=== PATIENT | female | born 1940 | race Caucasian/White ===

== ENCOUNTER 2017-07-22 17:34 | Observation (INO) | payer BC, OTHER ==
[~2017-07-22] VITALS: Ht 161.3 cm; Wt 52.3 kg
[2017-07-22 17:39] VITALS: BP 153/84; PULSE 89; RESP 18; TEMP 97.5; O2SAT 95
[2017-07-22 18:16] LABS: AUTOMATED NEUTROPHIL # 5.6 TH/MM3 (1.8-7.7); BASOPHIL # 0.1 TH/MM3 (0-0.2); BASOPHIL % 0.8 % (0.0-2.0); EOSINOPHIL % 0.3 % (0.0-4.0); HEMATOCRIT 46.3 % (35.0-46.0); HEMOGLOBIN 15.4 GM/DL (11.6-15.3); LYMPH % 19.6 % (9.0-44.0); LYMPHOCYTE # 1.6 TH/MM3 (1.0-4.8); MEAN CELL VOLUME 84.8 FL (80.0-100.0); MEAN CORPUSCULAR HEMOGLOBIN 28.1 PG (27.0-34.0); MEAN CORPUSCULAR HGB CONC 33.2 % (32.0-36.0); MEAN PLATELET VOLUME 8.2 FL (7.0-11.0); MONO % 8.6 % (0.0-8.0); MONOCYTE # 0.7 TH/MM3 (0-0.9); NEUT % 70.7 % (16.0-70.0); PLATELET COUNT 199 TH/MM3 (150-450); RED BLOOD COUNT 5.46 MIL/MM3 (4.00-5.30)
[2017-07-22 18:21] LABS: INTERNATIONAL NORMALIZED RATIO 1.1 RATIO; PROTHROMBIN TIME - PATIENT 11.3 SEC (9.8-11.6)
--- NOTE | 2017-07-22 18:27 | RADRPT ---
EXAM DATE/TIME: 07/22/2017 18:05 [facility] COMPARISON: No previous studies available for comparison. INDICATIONS : Palpitations and leg swelling. MEDICAL HISTORY : A-fib. SURGICAL HISTORY : None. ENCOUNTER: Initial ACUITY: 1 day PAIN SCORE: 0/10 LOCATION: Bilateral chest FINDINGS: PA and lateral views of the chest demonstrate no focal consolidation or significant effusion. Heart s ize is mildly enlarged. Tortuous aorta. Remote left clavicle fracture. Remote left rib fractures. CONCLUSION: 1. No acute findings. Paulo Plata MD on July 22, 2017 at 18:22 Board Certified Radiologist. This report was verified electronically.
[2017-07-22 18:34] LABS: BICARBONATE 28.9 MEQ/L (21.0-32.0); BLOOD UREA NITROGEN 10 MG/DL (7-18); CHLORIDE 99 MEQ/L (98-107); CREATININE 0.73 MG/DL (0.50-1.00); GLOMERULAR FILTRATION RATE 77 ML/MIN (>89); GLUCOSE,RANDOM 103 MG/DL (74-106); MAGNESIUM 1.6 MG/DL (1.5-2.5); SODIUM (NA) 134 MEQ/L (136-145)
[2017-07-22 18:38] LABS: TROPONIN I LESS THAN 0.02 NG/ML (0.02-0.05)
--- NOTE | 2017-07-22 20:44 | PD ---
HPI Chief Complaint: Cardiac Complaint Time Seen by Provider: 20:29 Travel History International Travel<30 days: No Contact w/Intl Traveler<30days: No Traveled to known affect area: No History of Present Illness HPI This is a 77-year-old female with history of infrequent tobacco and alcohol use who was sent by her primary care physician for evaluation of new onset atrial fibrillation. She reports that over the past 1-2 weeks she has had mild edema to the lower extremities. She saw her primary care physician, Dr. Sanchez, about this issue today and she was found to have atrial fibrillation. Her heart rate was as high as 145. She was given digoxin, aspirin, diltiazem in office and she was referred here for further evaluation. In retrospect she does report that she has had intermittent palpitations over the past 1-2 weeks. She denies chest pain, shortness of breath, lightheadedness, dizziness, nausea , vomiting, cough, congestion, abdominal pain, fevers or chills. Denies recent travel. No other complaints at this time. [facility] Social History Alcohol Use: Yes Tobacco Use: Yes Allergies-Medications (Allergen,Severity, Reaction): Coded Allergies: No Known Allergies (Unverified , 07/22/17) Review of Systems Except as stated in HPI: all other systems reviewed are Neg Physical Exam Narrative GENERAL: Pleasant well-developed well-nourished female no acute distress. SKIN: Warm and dry. HEAD: Atraumatic. Normocephalic. EYES: Pupils equal and round. No scleral icterus. No injection or drainage. ENT: No nasal bleeding or discharge. Mucous membranes pink and moist. NECK: Trachea midline. No JVD. CARDIOVASCULAR: Irregular rate and rhythm. No murmur appreciated. RESPIRATORY: No accessory muscle use. Clear to auscultation. Breath sounds equal bilaterally. GASTROINTESTINAL: Abdomen soft, non-tender, nondistended. Hepatic and splenic margins not palpable. MUSCULOSKELETAL: No obvious deformities. Trace tibial edema bilaterally. There is mild tenderness to palpation of both calves. Negative Homans. No tenderness to palpation of the thighs. 2+ dorsalis pedis pulses bilaterally. NEUROLOGICAL: Awake and alert. No obvious cranial nerve deficits. Motor grossly within normal limits. Normal speech. Data Data Last Documented VS Vital Signs Date Time Temp Pulse Resp B/P (MAP) Pulse Ox O2 Delivery O2 Flow Rate FiO2 07/22/17 17:39 97.5 89 18 153/84 (107) 95 Orders Orders Electrocardiogram (07/22/17 17:43) Basic Metabolic Panel (Bmp) (07/22/17 17:43) Ckmb (Isoenzyme) Profile (07/22/17 17:43) Complete Blood Count With Diff (07/22/17 17:43) Magnesium (Mg) (07/22/17 17:43) Prothrombin Time / Inr (Pt) (07/22/17 17:43) Act Partial Throm Time (Ptt) (07/22/17 17:43) Troponin I (07/22/17 17:43) Chest, Pa & Lat (07/22/17 17:43) Us Leg Venous Doppler Bilat (07/22/17 20:40) B-Type Natriuretic Peptide (07/22/17 20:40) Admit Order (Ed Use Only) (07/22/17 22:44) Labs Laboratory Tests Test 07/22/17 17:53 07/22/17 20:52 White Blood Count 8.0 TH/MM3 Red Blood Count 5.46 MIL/MM3 Hemoglobin 15.4 GM/DL Hematocrit 46.3 % Mean Corpuscular Volume 84.8 FL Mean Corpuscular Hemoglobin 28.1 PG Mean Corpuscular Hemoglobin Concent 33.2 % Red Cell Distribution Width 14.0 % Platelet Count 199 TH/MM3 Mean Platelet Volume 8.2 FL Neutrophils (%) (Auto) 70.7 % Lymphocytes (%) (Auto) 19.6 % Monocytes (%) (Auto) 8.6 % Eosinophils (%) (Auto) 0.3 % Basophils (%) (Auto) 0.8 % Neutrophils # (Auto) 5.6 TH/MM3 Lymphocytes # (Auto) 1.6 TH/MM3 Monocytes # (Auto) 0.7 TH/MM3 Eosinophils # (Auto) 0.0 TH/MM3 Basophils # (Auto) 0.1 TH/MM3 CBC Comment DIFF FINAL Differential Comment Prothrombin Time 11.3 SEC Prothromb Time International Ratio 1.1 RATIO Activated Partial Thromboplast Time 25.4 SEC Blood Urea Nitrogen 10 MG/DL Creatinine 0.73 MG/DL Random Glucose 103 MG/DL Calcium Level 9.0 MG/DL Magnesium Level 1.6 MG/DL Sodium Level 134 MEQ/L Potassium Level 3.7 MEQ/L Chloride Level 99 MEQ/L Carbon Dioxide Level 28.9 MEQ/L Anion Gap 6 MEQ/L Estimat Glomerular Filtration Rate 77 ML/MIN Total Creatine Kinase 71 U/L Troponin I LESS THAN 0.02 NG/ML B-Type Natriuretic Peptide 392 PG/ML MDM Medical Decision Making Medical Screen Exam Complete: Yes Emergency Medical Condition: Yes Medical Record Reviewed: Yes Differential Diagnosis New-onset atrial fibrillation, CHF, DVT, electrolyte abnormality, sinus tachycardia Narrative Course This is a 77-year-old female who has been experiencing new bilateral lower extremity edema for the past few weeks as well as palpitations, found to have new onset atrial fibrillation and her primary care physician's office today. EKG obtained here reveals atrial fibrillation with a rate of 85. T-wave inversions are noted in the anterior lateral leads. No comparison EKG. CBC reveals hemoglobin of 15.4 otherwise unremarkable. BMP reveals a sodium of 134 otherwise unremarkable. Cardiac enzymes are negative. Chest x-ray reveals no acute findings. Doppler ultrasound of the lower extremities reveals no acute abnormalities. BNP is 392. At this point in time the plan is to admit the patient for new onset atrial fibrillation. Diagnosis Primary Impression: Atrial fibrillation Admitting Information Admitting Physician Requests: Admit Devonte Cardenas Jul 22, 2017 20:44
--- NOTE | 2017-07-22 21:54 | EKG ---
Date Performed: 07/22/2017 Time Performed: 17:55:22 PTAGE: 77 years EKG: ATRIAL FIBRILLATION Nonspecific ST and T wave abnormalities ABNORMAL ECG NO PREVIOUS TRACING DOCTOR: Dennis Packer Interpretating Date/Time 07/22/2017 21:53:10
--- NOTE | 2017-07-22 22:31 | RADRPT ---
EXAM DATE/TIME: 07/22/2017 21:53 [facility] COMPARISON: No previous studies available for comparison. INDICATIONS : Bilateral leg swelling. MEDICAL HISTORY : Hypercholesterolemia. SURGICAL HISTORY : Tubal ligation. Bladder surgery. ENCOUNTER: Initial ACUITY: 1 week PAIN SCORE: 2/10 LOCATION: Bilateral legs. TECHNIQUE: Venous ultrasound of the left and right leg was performed from the inguinal ligament to the proximal calf. Real-time, color Doppler and spectral tracing, compression and augmentation techniques were us ed. FINDINGS: RIGHT LEG: There is normal compressibility of the deep venous system from the inguinal region to the proximal ca lf. No echogenic clot is seen in the lumen of the common femoral, femoral, popliteal, and posterior tibial veins. There is a normal response of the venous system to proximal and distal augmentation an d respiration. LEFT LEG: There is normal compressibility of the deep venous system from the inguinal region to the proximal ca lf. No echogenic clot is seen in the lumen of the common femoral, femoral, popliteal, and posterior tibial veins. There is a normal response of the venous system to proximal and distal augmentation an d respiration. CONCLUSION: Normal examination. Paulo Plata MD on July 22, 2017 at 22:27 Board Certified Radiologist. This report was verified electronically.
--- NOTE | 2017-07-22 23:03 | PD ---
Data Data Last Documented VS Vital Signs Date Time Temp Pulse Resp B/P (MAP) Pulse Ox O2 Delivery O2 Flow Rate FiO2 07/22/17 17:39 97.5 89 18 153/84 (107) 95 Orders Orders Electrocardiogram (07/22/17 17:43) Basic Metabolic Panel (Bmp) (07/22/17 17:43) Ckmb (Isoenzyme) Profile (07/22/17 17:43) Complete Blood Count With Diff (07/22/17 17:43) Magnesium (Mg) (07/22/17 17:43) Prothrombin Time / Inr (Pt) (07/22/17 17:43) Act Partial Throm Time (Ptt) (07/22/17 17:43) Troponin I (07/22/17 17:43) Chest, Pa & Lat (07/22/17 17:43) Us Leg Venous Doppler Bilat (07/22/17 20:40) B-Type Natriuretic Peptide (07/22/17 20:40) Admit Order (Ed Use Only) (07/22/17 22:44) Labs Laboratory Tests Test 07/22/17 17:53 07/22/17 20:52 White Blood Count 8.0 TH/MM3 Red Blood Count 5.46 MIL/MM3 Hemoglobin 15.4 GM/DL Hematocrit 46.3 % Mean Corpuscular Volume 84.8 FL Mean Corpuscular Hemoglobin 28.1 PG Mean Corpuscular Hemoglobin Concent 33.2 % Red Cell Distribution Width 14.0 % Platelet Count 199 TH/MM3 Mean Platelet Volume 8.2 FL Neutrophils (%) (Auto) 70.7 % Lymphocytes (%) (Auto) 19.6 % Monocytes (%) (Auto) 8.6 % Eosinophils (%) (Auto) 0.3 % Basophils (%) (Auto) 0.8 % Neutrophils # (Auto) 5.6 TH/MM3 Lymphocytes # (Auto) 1.6 TH/MM3 Monocytes # (Auto) 0.7 TH/MM3 Eosinophils # (Auto) 0.0 TH/MM3 Basophils # (Auto) 0.1 TH/MM3 CBC Comment DIFF FINAL Differential Comment Prothrombin Time 11.3 SEC Prothromb Time International Ratio 1.1 RATIO Activated Partial Thromboplast Time 25.4 SEC Blood Urea Nitrogen 10 MG/DL Creatinine 0.73 MG/DL Random Glucose 103 MG/DL Calcium Level 9.0 MG/DL Magnesium Level 1.6 MG/DL Sodium Level 134 MEQ/L Potassium Level 3.7 MEQ/L Chloride Level 99 MEQ/L Carbon Dioxide Level 28.9 MEQ/L Anion Gap 6 MEQ/L Estimat Glomerular Filtration Rate 77 ML/MIN Total Creatine Kinase 71 U/L Troponin I LESS THAN 0.02 NG/ML B-Type Natriuretic Peptide 392 PG/ML [facility] Medical Record Reviewed: Yes Supervised Visit with SOILA: Yes Interpretation(s) Last Impressions Lower Extremity Ultrasound 07/22/172039 Signed Impressions: Service Date/Time: Saturday, July 22, 2017 21:53 - CONCLUSION: Normal examination. Paulo Plata MD Chest X-Ray 07/22/171742 Signed Impressions: Service Date/Time: Saturday, July 22, 2017 18:05 - CONCLUSION: 1. No acute findings. Paulo Plata MD Narrative Course I, Dr. Arriaga, have reviewed the advance practice practitioner's documentation and am in agreement, met with the patient face to face, made the diagnosis, and the medical decision making was done by me. The patient was initially evaluated by Devonte. Please see their complete history and physical. *My assessment and Findings: The patient presents with a history of atrial fibrillation with RVR diagnosed at her primary care doctor's office earlier today, sent to the emergency department for evaluation and continued treatment. The patient reportedly was given digoxin, Cardizem, and aspirin and her primary care doctor's office. The patient was noted at that time to have a heart rate in the 140s. During the course of the patient's emergency department visit, the patient's history, examination, and differential diagnosis were reviewed with the patient. The patient was placed on a security patrol driver with oximetry and frequent blood pressure monitoring. The patient had IV access obtained and blood work sent for analysis. The patient was initially provided [-]. The patient's laboratory studies were reviewed and remarkable for a white count of 8, hemoglobin 15.4, platelets 199 with 70.7 neutrophils, 8.6 monocytes, basic metabolic profile is remarkable for sodium of 134, GFR 77, initial set of cardiac enzymes are negative, BNP is 392, PT 11.3, PTT 25.4. The patient will be admitted to the hospital for new onset atrial fibrillation. The patient's results were discussed with the patient, including the plan of care. I explained that further testing and/ or monitoring is indicated based on the patient's history, examination, and/ or laboratory findings. Therefore, I recommended admission for additional evaluation. The patient expressed understanding and was agreeable with this plan. The patient was admitted to the hospital in stable condition and sent to a bed under the care of the [facility] service. Diagnosis Primary Impression: Atrial fibrillation Qualified Codes: I48.91 - Unspecified atrial fibrillation Katerine Arriaga MD Jul 22, 2017 23:03
[2017-07-22 23:35] VITALS: BP 140/89; PULSE 96; RESP 18; O2SAT 98
--- NOTE | 2017-07-23 00:57 | HHI.HP ---
[facility] Service [place] [facility] Primary Care Physician Unknown Admission Diagnosis New onset atrial fibrillation Diagnoses: Travel History International Travel<30 Days: No Contact w/Intl Traveler <30 Da: No Traveled to Known Affected Are: No History of Present Illness 77-year-old female with a past medical history significant for hyperlipidemia presents to the emergency department from her physician's office for the evaluation of atrial fibrillation with rapid ventricular response. The patient was being seen by her primary care physician earlier yesterday for bilateral lower extremity edema 1-2 weeks when she was found to be in atrial fibrillation with RVR. She was given digoxin, aspirin and diltiazem in the office and was referred to the emergency department for further evaluation. Patient does report intermittent heart palpitations over the past 2 weeks. She denies any chest pain or shortness of breath. No loss of consciousness or dizziness. On arrival to the emergency department she is rate controlled however remains in atrial fibrillation. She has no cardiac history. She denies any abdominal pain. No nausea/vomiting/diarrhea. No weakness. Review of Systems Except as stated in HPI: all other systems reviewed are Neg Past Family Social History Past Medical History Hyperlipidemia Past Surgical History Bladder sling Bilateral tubal ligation Allergies: Coded Allergies: No Known Allergies (Unverified , 07/22/17) Family History Unknown Social History Smokes approximately half a pack per day. Occasional alcohol. Denies illicit drugs. Physical Exam Vital Signs Vital Signs Date Time Temp Pulse Resp B/P (MAP) Pulse Ox O2 Delivery O2 Flow Rate FiO2 07/22/17 23:35 96 18 140/89 (106) 98 07/22/17 17:39 97.5 89 18 153/84 (107) 95 Physical Exam GENERAL: female lying in bed SKIN: No rashes, ecchymoses or lesions. Cool and dry. HEAD: Atraumatic. Normocephalic. No temporal or scalp tenderness. EYES: Pupils equal round and reactive. Extraocular motions intact. No scleral icterus. No injection or drainage. ENT: Nose without bleeding, purulent drainage or septal hematoma. Throat without erythema, tonsillar hypertrophy or exudate. Uvula midline. Airway patent. NECK: Trachea midline. No JVD or lymphadenopathy. Supple, nontender, no meningeal signs. CARDIOVASCULAR: Regular rate with irregularly irregular rhythm without murmurs, gallops, or rubs. RESPIRATORY: Clear to auscultation. Breath sounds equal bilaterally. No wheezes , rales, or rhonchi. GASTROINTESTINAL: Abdomen soft, non-tender, nondistended. No hepato-splenomegaly , or palpable masses. No guarding. MUSCULOSKELETAL: 2+ bilateral lower extremity edema NEUROLOGICAL: Awake and alert. Cranial nerves II through XII intact. Motor and sensory grossly within normal limits. Normal speech. Laboratory Laboratory Tests Test 07/22/17 17:53 07/22/17 20:52 White Blood Count 8.0 Red Blood Count 5.46 Hemoglobin 15.4 Hematocrit 46.3 Mean Corpuscular Volume 84.8 Mean Corpuscular Hemoglobin 28.1 Mean Corpuscular Hemoglobin Concent 33.2 Red Cell Distribution Width 14.0 Platelet Count 199 Mean Platelet Volume 8.2 Neutrophils (%) (Auto) 70.7 Lymphocytes (%) (Auto) 19.6 Monocytes (%) (Auto) 8.6 Eosinophils (%) (Auto) 0.3 Basophils (%) (Auto) 0.8 Neutrophils # (Auto) 5.6 Lymphocytes # (Auto) 1.6 Monocytes # (Auto) 0.7 Eosinophils # (Auto) 0.0 Basophils # (Auto) 0.1 CBC Comment DIFF FINAL Differential Comment Prothrombin Time 11.3 Prothromb Time International Ratio 1.1 Activated Partial Thromboplast Time 25.4 Blood Urea Nitrogen 10 Creatinine 0.73 Random Glucose 103 Calcium Level 9.0 Magnesium Level 1.6 Sodium Level 134 Potassium Level 3.7 Chloride Level 99 Carbon Dioxide Level 28.9 Anion Gap 6 Estimat Glomerular Filtration Rate 77 Total Creatine Kinase 71 Troponin I LESS THAN 0.02 B-Type Natriuretic Peptide 392 Result Diagram: 07/22/17 17507/22/171752 Caprini VTE Risk Assessment Caprini VTE Risk Assessment: Mod/High Risk (score >= 2) Caprini Risk Assessment Model Point Value = 1 Point Value = 2 Point Value = 3 Point Value = 5 Age 41-60 Minor surgery BMI > 25 kg/m2 Swollen legs Varicose veins or History of unexplained or recurrent spontaneous Oral contraceptives or hormone replacement Sepsis (< 1 month) Serious lung disease, including pneumonia (< 1 month) Abnormal pulmonary function Acute myocardial infarction Congestive heart failure (< 1 month) History of inflammatory bowel disease Medical patient at bed rest Age 61-74 Arthroscopic surgery Major open surgery (> 45 min) Laparoscopic surgery (> 45 min) Malignancy Confined to bed (> 72 hours) Immobilizing plaster cast Central venous access Age >= 75 History of VTE Family history of VTE Factor V Leiden Prothrombin [id number] Lupus anticoagulant Anticardiolipin antibodies Elevated serum homocysteine Heparin-induced thrombocytopenia Other congenital or acquired thrombophilia Stroke (< 1 month) Elective arthroplasty Hip, pelvis, or leg fracture Acute spinal cord injury (< 1 month) Prophylaxis Regimen Total Risk Factor Score Risk Level Prophylaxis Regimen 0-1 Low Early ambulation 2 Moderate Order ONE of the following: *Sequential Compression Device (SCD) *Heparin 5000 units SQ BID 3-4 Higher Order ONE of the following medications: *Heparin 5000 units SQ TID *Enoxaparin/Lovenox 40 mg SQ daily (WT < 150 kg, CrCl > 30 mL/min) *Enoxaparin/Lovenox 30 mg SQ daily (WT < 150 kg, CrCl > 10-29 mL/min) *Enoxaparin/Lovenox 30 mg SQ BID (WT < 150 kg, CrCl > 30 mL/min) AND/OR *Sequential Compression Device (SCD) 5 or more Highest Order ONE of the following medications: *Heparin 5000 units SQ TID (Preferred with Epidurals) *Enoxaparin/Lovenox 40 mg SQ daily (WT < 150 kg, CrCl > 30 mL/min) *Enoxaparin/Lovenox 30 mg SQ daily (WT < 150 kg, CrCl > 10-29 mL/min) *Enoxaparin/Lovenox 30 mg SQ BID (WT < 150 kg, CrCl > 30 mL/min) AND *Sequential Compression Device (SCD) Assessment and Plan Assessment and Plan Assessment/plan: 1. New-onset atrial fibrillation EKG shows atrial fibrillation, pulse 85, no ST segment elevation/depressions, personally reviewed Initial troponin negative Patient denies any chest pain Status post by mouth diltiazem and digoxin of her physician's office By mouth diltiazem Therapeutic Lovenox Cardiology consulted, appreciate recommendations 2. Lower extremity edema Echo pending BNP 392 Large toenail ultrasound negative for DVT FEN Heart healthy diet Electrolytes: monitor and replete prn Lovenox [place],Hemalatha Florence MD Jul 23, 2017 00:57
[2017-07-23] MEDS ORDERED: SODIUM CHLORIDE 0.9% FLUSH 10 ML FLUSH IV FLUSH PRN (01:00)
[2017-07-23] MEDS: ENOXAPARIN SODIUM 60 MG/0.6 ML SYRINGE SQ SCH ×2 (01:16→14:10)
[2017-07-23 04:59] VITALS: BP 137/81; PULSE 100; RESP 22; O2SAT 98
[2017-07-23 07:40] VITALS: BP 156/101; PULSE 118; RESP 18; O2SAT 94
[2017-07-23] MEDS: SODIUM CHLORIDE 0.9% FLUSH 10 ML FLUSH IV FLUSH SCH ×2 (07:55→21:00)
[2017-07-23] MEDS: DILTIAZEM HCL 30 MG TAB PO SCH ×2 (07:55→14:10)
--- NOTE | 2017-07-23 08:27 | MB ---
cc: Vee Paula MD DATE: 07/23/2017 REASON FOR CONSULTATION: Atrial fibrillation with rapid ventricular rate. HISTORY OF PRESENT ILLNESS: Ms. Messina is a pleasant 77-year-old female who was seen at her primary care provider for some lower extremity edema. She was found to be in atrial fibrillation with a rapid ventricular rate, and referred to the emergency room. The patient reports intermittent palpitations and a heart rate in her primary's office of up to 135 beats a minute. She denies any chest pain. Her shortness of breath is stable and secondary to her COPD per the patient. She has had palpitations over the last 1 to 2 weeks that were intermittent. She also indicates that she has had some lower extremity edema over the last week or so. PAST MEDICAL HISTORY: Significant for hyperlipidemia, hypertension, and COPD. ALLERGIES: NO KNOWN DRUG ALLERGIES. SOCIAL HISTORY: The patient does smoke a 1/2 pack per day. CURRENT MEDICATIONS: Includes the Cardizem 30 mg q. 6 hours and Lovenox 50 mg q. 12 hours. REVIEW OF SYSTEMS: Except as mentioned in the HPI, all 12 systems are negative. PHYSICAL EXAMINATION: VITAL SIGNS: 100, 22, 154/100. GENERAL: She is a well-appearing female, who is in no apparent distress. NECK: Free from JVD. LUNGS: Bilaterally clear to auscultation. CARDIOVASCULAR: She has an irregularly irregular rhythm. No rubs or gallops are appreciated. ABDOMEN: Soft. The right lower extremity does have a trace amount of edema. LABORATORY DATA: EKG shows atrial fibrillation with a controlled ventricular rate. LABORATORY VALUES: Significant for a hemoglobin of 15, creatinine of 0.73, a troponin of 0.02 and a BNP of 392. Chest x-ray was negative for any acute process. IMPRESSIONS: 1. Atrial fibrillation - The patient did have some RVR in the PCP office. She does appear to be reasonably controlled here with the p.o. Cardizem though her heart rate was drifting up into the one teens. We will give her an a.m. dose of Cardizem and consider doing a nuclear stress test for an ischemia evaluation today while she is in the hospital. This is provided her heart rate is stable after her a.m. medication. Additionally, her CHADS-VASc score is at least 3 for age over 75 and female. She also indicates that she has had some hypertension, which would make her score a 4 and possibly CHF. In any case, it is elevated above 2 and thus she does need long-term anticoagulation. We discussed Coumadin versus the newer agents. She refuses any Coumadin or warfarin. Thus, we will likely place her on Xarelto as this is well covered by her insurance. She is aware that there is no reversal agent. A TSH will be obtained. If she is stable and the stress test is nonischemic, it would be reasonable to consider discharge. MD KRISTIN Dasilva/MARSHAL , 07:57 AM , 08:26 AM
[2017-07-23 10:50] VITALS: BP 136/89; PULSE 95; RESP 16; O2SAT 96
[2017-07-23] MEDS ORDERED: REGADENOSON INJ 0.4 MG/5 ML SYR IV ONE (12:45)
[2017-07-23 14:14] VITALS: BP 128/79
--- NOTE | 2017-07-23 14:32 | RADRPT ---
EXAM DATE/TIME: 07/23/2017 12:12 [facility] COMPARISON: No previous studies available for comparison. INDICATIONS : Shortness of breath with palpitations for one week. Atrial fibrillation. DOSE: 27.62 mCi Tc99m Myoview at stress. 8.6 mCi Tc99m Myoview at rest. 0.4 mg Lexiscan STRESS SYMPTOMS: Dyspnea. EJECTION FRACTION: > 70% MEDICAL HISTORY : Chronic obstructive pulmonary disease. Hypertension. SURGICAL HISTORY : Tubal ligation. ENCOUNTER: Initial ACUITY: 1 week PAIN SCALE: 0/10 LOCATION: chest TECHNIQUE: The patient underwent pharmacologic stress with infusion of prescribed dose. Continuous ECG tracing was monitored during stress. Gated SPECT imaging was performed after stress and conventional SPECT i maging was performed at rest. The examination was performed on a SPECT/CT scanner, both attenuation and non-corrected datasets were reviewed. FINDINGS: DISTRIBUTION: The maximum perfused segment at stress is in the anterior wall. PERFUSION STUDY: The pattern of perfusion at stress is within normal limits. GATED STUDY: There is intact wall motion and thickening without hypokinetic or dyskinetic segments. Left ventricul ar ejection fraction is greater than 70%. CONCLUSION: No evidence of infarct, ischemia or focal wall motion abnormality. RISK CATEGORY: Low risk (less than 1% annual mortality rate). Altaf Farah MD on July 23, 2017 at 14:27 Board Certified Radiologist. This report was verified electronically.
--- NOTE | 2017-07-23 16:13 | HHI.PR ---
Subjective Remarks Follow-up for new-onset atrial fibrillation. Patient reports feeling better today, however still just feels weak and tired. Her heart rate is still in the low 100s on telemetry. She denies any current chest pain, shortness breath, or palpitations. She denies any lightheadedness or dizziness. Denies any lower extremity edema or orthopnea. She denies any prior history or family history of A. fib. Discussed recommendation of anticoagulation, patient agrees to starting Xarelto, would like to avoid Coumadin if possible. She has seen Dr. Paula a few years ago and will plan to follow-up with her at discharge. Objective Vitals Vital Signs Date Time Temp Pulse Resp B/P (MAP) Pulse Ox O2 Delivery O2 Flow Rate FiO2 07/23/17 14:14 108 18 128/79 (95) 96 07/23/17 10:50 95 16 136/89 (105) 96 Room Air 07/23/17 07:40 118 18 156/101 (119) 94 Room Air 07/23/17 04:59 100 22 137/81 (99) 98 Room Air 07/22/17 23:35 96 18 140/89 (106) 98 07/22/17 17:39 97.5 89 18 153/84 (107) 95 Result Diagram: 07/22/17 [id number]/[id number] Imaging Last Impressions Myocardial Perfusion Scan Nuc Med 07/23/17 0000 Signed Impressions: Service Date/Time: Sunday, July 23, 2017 12:12 - CONCLUSION: No evidence of infarct, ischemia or focal wall motion abnormality. RISK CATEGORY: Low risk (less than 1%% annual mortality rate). Altaf Farah MD Lower Extremity Ultrasound 07/22/172039 Signed Impressions: Service Date/Time: Saturday, July 22, 2017 21:53 - CONCLUSION: Normal examination. Paulo Plata MD Chest X-Ray 07/22/17 1743 Signed Impressions: Service Date/Time: Saturday, July 22, 2017 18:05 - CONCLUSION: 1. No acute findings. Paulo Plata MD Objective Remarks GENERAL: Well-nourished, well-developed pleasant elderly female patient in [facility]. SKIN: Warm and dry. No rash. HEENT: Normocephalic. Atraumatic.Pupils equal and round. Mucous membranes pink and moist. CARDIOVASCULAR: Irregularly irregular, tachycardic. No murmur appreciated. RESPIRATORY: No accessory muscle use. Clear to auscultation. Breath sounds equal bilaterally. GASTROINTESTINAL: Abdomen soft, non-tender, nondistended. Normoactive bowel sounds x4. MUSCULOSKELETAL: No obvious deformities. Extremities without clubbing, cyanosis , or edema. NEUROLOGICAL: Awake and alert. No obvious cranial nerve deficits. Motor grossly within normal limits. Normal speech. PSYCHIATRIC: Appropriate mood and affect; insight and judgment normal. Medications and IVs Current Medications Medications (Trade) Dose Ordered Sig/Marko Route Start Time Stop Time Status Last Admin (NS Flush) 2 ml UNSCH PRN IV FLUSH 07/23/17 01:00 (NS Flush) 2 ml BID IV FLUSH 07/23/17 09:00 07/23/17 07:55 (Xarelto) 20 mg WITH DINNER PO 07/23/17 18:00 UNV (Cardizem) 60 mg Q6HR PO 07/23/17 18:00 UNV A/P Assessment and Plan 77-year-old female with history of hyperlipidemia presented to the ED from her PCPs office for evaluation of A. fib with RVR, reportedly heart rate 145 at the office and she was given digoxin, aspirin, cardizem, then sent to the ER.. New onset atrial fibrillation with RVR: Heart rate 120s upon arrival to the ER, s/p digoxin, cardizem, aspirin prior to arrival. Patient symptomatic with palpitations. TSH wnl. -Monitor on telemetry -Check echocardiogram -Consulted cardiology, appreciate Dr. Paula's assistance -Nuclear stress test unremarkable -Started on cardizem 30mg q6h, however HR still in low 100s, discussed with Dr. Paula, agrees with increasing dose, changed to Cardizem 60mg q6h -Chads 2 Vasc score at least 3, anticoagulation recommended -Started on Xarelto 20mg daily -Continue to monitor, likely d/c tomorrow if HR < 100 Hypomagnesemia: Mag 1.6 -give IV Mag sulfate x2G -repeat mag level in am Generalized Weakness: suspect secondary to ongoing tachycardia -control heart rate as above -consult PT -monitor for improvement Hyperlipidemia: chronic -check lipid panel in am DVT Prophylaxis: started on Xarelto Discharge Planning Likely discharge tomorrow if HR controlled, repeat labs stable, and after PT consult. Misty Yen PA-C Jul 23, 2017 4:13 pm
[2017-07-23] MEDS: MAGNESIUM SULFATE 1 GM PREMIX 100 ML IV SCH ×2 (17:57→18:55)
[2017-07-23] MEDS: RIVAROXABAN 20 MG TAB PO SCH (18:52)
[2017-07-23] MEDS: DILTIAZEM HCL 60 MG TAB PO SCH (18:52)
[2017-07-23 19:52] VITALS: BP 119/75; PULSE 104; RESP 16; TEMP 98; O2SAT 96
[2017-07-23 23:52] VITALS: BP 111/58; PULSE 103; RESP 16; TEMP 97.7; O2SAT 96
[2017-07-24 04:50] VITALS: BP 122/85; PULSE 91; RESP 16; TEMP 97.8; O2SAT 96
[2017-07-24] MEDS: DILTIAZEM HCL 60 MG TAB PO SCH ×4 (06:31→18:05)
--- NOTE | 2017-07-24 07:43 | PD.CARD.PN ---
Subjective Subjective Remarks Pt without complaints Objective Medications Current Medications Medications (Trade) Dose Ordered Sig/Marko Route Start Time Stop Time Status Last Admin (NS Flush) 2 ml UNSCH PRN IV FLUSH 07/23/17 01:00 (NS Flush) 2 ml BID IV FLUSH 07/23/17 09:00 07/23/17 07:55 (Xarelto) 20 mg WITH DINNER PO 07/23/17 18:00 07/23/17 18:52 (Cardizem) 60 mg Q6HR PO 07/23/17 18:00 07/24/17 06:31 Vital Signs / I&O Vital Signs Date Time Temp Pulse Resp B/P (MAP) Pulse Ox O2 Delivery O2 Flow Rate FiO2 07/24/17 04:50 97.8 91 16 122/85 (97) 96 07/23/17 23:52 97.7 103 16 111/58 (75) 96 07/23/17 19:52 98.0 104 16 119/75 (90) 96 07/23/17 14:14 108 18 128/79 (95) 96 07/23/17 10:50 95 16 136/89 (105) 96 Room Air I/O 07/23/17 07/23/17 07/23/17 07/24/17 07/24/17 07/24/17 07:00 15:00 23:00 07:00 15:00 23:00 Intake Total 300 ml Balance 300 ml Intake Oral 200 ml IV Total 100 ml # Voids 1 Physical Exam GENERAL: Well developed, well nourished. No acute distress. HEENT: Jugular venous pressure is normal. CHEST: Lungs clear to auscultation bilaterally. Unlabored respiratory effort. CARDIAC: irregular rate and rhythm without S3, S4, or murmur. ABDOMEN: Soft, nontender, no hepatosplenomegaly. Bowel sounds present. EXTREMITIES: No clubbing, cyanosis, or edema. Imaging Last 72 hours Impressions Myocardial Perfusion Scan Nuc Med 07/23/17 0000 Signed Impressions: Service Date/Time: Sunday, July 23, 2017 12:12 - CONCLUSION: No evidence of infarct, ischemia or focal wall motion abnormality. RISK CATEGORY: Low risk (less than 1%% annual mortality rate). Altaf Farah MD Lower Extremity Ultrasound 07/22/172039 Signed Impressions: Service Date/Time: Saturday, July 22, 2017 21:53 - CONCLUSION: Normal examination. Paulo Plata MD Chest X-Ray 07/22/17 1743 Signed Impressions: Service Date/Time: Saturday, July 22, 2017 18:05 - CONCLUSION: 1. No acute findings. Paulo Plata MD Assessment and Plan Problem List: (1) Atrial fibrillation ICD Codes: I48.91 - Unspecified atrial fibrillation Status: Acute Plan: Pt with fair rate control; increase cardizem - if rate controlled with ambulation (<120) ok for d/c -on xarelto Problem Qualifiers (1) Atrial fibrillation: Qualified Codes: I48.91 - Unspecified atrial fibrillation Vee Paula MD Jul 24, 2017 07:43
[2017-07-24] MEDS ORDERED: DILTIAZEM HCL 30 MG TAB PO ONE (08:00)
[2017-07-24 08:15] VITALS: PULSE 91
[2017-07-24] MEDS ORDERED: PILL SPLITTER OTHER PRN (08:15)
[2017-07-24 08:32] VITALS: BP 130/82; PULSE 94; RESP 18; TEMP 98.1; O2SAT 93
[2017-07-24] MEDS: SODIUM CHLORIDE 0.9% FLUSH 10 ML FLUSH IV FLUSH SCH (09:05)
[2017-07-24 10:32] LABS: AUTOMATED NEUTROPHIL # 4.5 TH/MM3 (1.8-7.7); BASOPHIL # 0.1 TH/MM3 (0-0.2); BASOPHIL % 0.9 % (0.0-2.0); EOSINOPHIL % 0.7 % (0.0-4.0); HEMATOCRIT 47.1 % (35.0-46.0); HEMOGLOBIN 15.4 GM/DL (11.6-15.3); LYMPH % 15.2 % (9.0-44.0); LYMPHOCYTE # 0.9 TH/MM3 (1.0-4.8); MEAN CELL VOLUME 84.5 FL (80.0-100.0); MEAN CORPUSCULAR HEMOGLOBIN 27.6 PG (27.0-34.0); MEAN CORPUSCULAR HGB CONC 32.7 % (32.0-36.0); MEAN PLATELET VOLUME 8.4 FL (7.0-11.0); MONO % 10.1 % (0.0-8.0); MONOCYTE # 0.6 TH/MM3 (0-0.9); NEUT % 73.1 % (16.0-70.0); PLATELET COUNT 190 TH/MM3 (150-450); RED BLOOD COUNT 5.57 MIL/MM3 (4.00-5.30); RED CELL DISTRIBUTION WIDTH 14.2 % (11.6-17.2); WHITE BLOOD COUNT 6.1 TH/MM3 (4.0-11.0)
[2017-07-24 10:57] LABS: BICARBONATE 30.1 MEQ/L (21.0-32.0); CALCIUM 8.6 MG/DL (8.5-10.1); CREATININE 0.6 MG/DL (0.50-1.00); MAGNESIUM 1.8 MG/DL (1.5-2.5)
[2017-07-24 11:01] LABS: CHOLESTEROL/ HDL RATIO 1.63 RATIO; HDL CHOLESTEROL 92.3 MG/DL (40.0-60.0)
[2017-07-24 11:25] VITALS: PULSE 87
[2017-07-24 12:01] VITALS: BP 113/73; PULSE 93; RESP 18; TEMP 98.7; O2SAT 97
[2017-07-24 16:46] VITALS: BP 98/64; PULSE 66; RESP 18; TEMP 97.4; O2SAT 95
[2017-07-24] MEDS: RIVAROXABAN 20 MG TAB PO SCH (18:05)
--- NOTE | 2017-07-24 18:35 | HHI.PR ---
Subjective Remarks Follow-up visit new onset atrial fibrillation. Patient seen and examined today. Family at the bedside. Discussed extensively with patient regarding atrial fibrillation and follow-up visit with her PCP and Dr. Paula the automobile mechanic helper. Discussed home medications to use, precautions, side effects of the medications. Patient states she feels better. She is able to ambulate the hallway without increasing her heart rate. She was given Cardizem today 90 mg. Able to ambulate with heart rate at the 90s as per RN. Denies pain and discomfort. Denies SOB/ dyspnea. Denies chest pain, palpitations, headaches, dizziness. Denies fevers, chills, n/v/d. Denies dysuria. Objective Vitals Vital Signs Date Time Temp Pulse Resp B/P (MAP) Pulse Ox O2 Delivery O2 Flow Rate FiO2 07/24/17 16:46 97.4 66 18 98/64 (75) 95 07/24/17 12:01 98.7 93 18 113/73 (86) 97 07/24/17 11:25 87 07/24/17 08:32 98.1 94 18 130/82 (98) 93 07/24/17 08:15 91 07/24/17 04:50 97.8 91 16 122/85 (97) 96 07/23/17 23:52 97.7 103 16 111/58 (75) 96 07/23/17 19:52 98.0 104 16 119/75 (90) 96 I/O 07/23/17 07/23/17 07/23/17 07/24/17 07/24/17 07/24/17 07:00 15:00 23:00 07:00 15:00 23:00 Intake Total 300 ml Balance 300 ml Intake Oral 200 ml IV Total 100 ml # Voids 1 2 Result Diagram: 07/24/17 0850 07/24/17 0850 Imaging Last Impressions Myocardial Perfusion Scan Nuc Med 07/23/17 0000 Signed Impressions: Service Date/Time: Sunday, July 23, 2017 12:12 - CONCLUSION: No evidence of infarct, ischemia or focal wall motion abnormality. RISK CATEGORY: Low risk (less than 1%% annual mortality rate). Altaf Farah MD Lower Extremity Ultrasound 07/22/172039 Signed Impressions: Service Date/Time: Saturday, July 22, 2017 21:53 - CONCLUSION: Normal examination. Paulo Plata MD Chest X-Ray 07/22/17 3118 Signed Impressions: Service Date/Time: Saturday, July 22, 2017 18:05 - CONCLUSION: 1. No acute findings. Paulo Plata MD Objective Remarks GENERAL: Well-nourished, well-developed pleasant elderly female patient in [facility]. SKIN: Warm and dry. Ecchymosis bilateral lower extremity left greater than the right. HEENT: Normocephalic. Atraumatic.Pupils equal and round. Mucous membranes pink and moist. CARDIOVASCULAR: Irregularly irregular, HR 90s. No murmur appreciated. RESPIRATORY: No accessory muscle use. Clear to auscultation. Breath sounds equal bilaterally. GASTROINTESTINAL: Abdomen soft, non-tender, nondistended. Normoactive bowel sounds x4. MUSCULOSKELETAL: No obvious deformities. Extremities without clubbing, cyanosis. Lateral lower extremity trace edema left greater than right. NEUROLOGICAL: Awake and alert. No obvious cranial nerve deficits. Motor grossly within normal limits. Normal speech. PSYCHIATRIC: Appropriate mood and affect; insight and judgment normal. A/P Problem List: (1) Atrial fibrillation ICD Code: I48.91 - Unspecified atrial fibrillation Status: Acute Assessment and Plan 77-year-old female with history of hyperlipidemia presented to the ED from her PCPs office for evaluation of A. fib with RVR, reportedly heart rate 145 at the office and she was given digoxin, aspirin, cardizem, then sent to the ER.. New onset atrial fibrillation with RVR: Heart rate 120s upon arrival to the ER, s/p digoxin, cardizem, aspirin prior to arrival. Patient symptomatic with palpitations. TSH wnl. -Monitor on telemetry -Consulted cardiology, appreciate Dr. Paula's assistance -Nuclear stress test unremarkable -Started on cardizem 30mg q6h, however HR still in low 100s, discussed with Dr. Paula, agrees with increasing dose, changed to Cardizem 60mg q6h, now [id number] -Chads 2 Vasc score at least 3, anticoagulation recommended -Continue on Xarelto 20mg daily -Able to ambulate the hallway without increasing heart rate. Hypomagnesemia: Mag 1.6 -give IV Mag sulfate x2G -repeat mag level 1.8 Generalized Weakness: suspect secondary to ongoing tachycardia -control heart rate as above -consult PT -monitor for improvement Hyperlipidemia: chronic -check lipid panel in am DVT Prophylaxis: started on Xarelto Discharge Planning Plan to DC home today cleared by cardiology Problem Qualifiers (1) Atrial fibrillation: Qualified Codes: I48.91 - Unspecified atrial fibrillation Caty Clemente Jul 24, 2017 6:35 pm
--- NOTE | 2017-07-24 18:35 | ECHRPT ---
Indication: AFIB FLUTTER CONCLUSIONS Normal left ventricular size. Wall thickness is normal. The left ventricular systolic function is normal with an estimated ejection fraction in the range of 55-60%. The right atrial size is mildly dilated. Severe mitral valve regurgitation. There is severe tricuspid regurgitation. The estimated pulmonary arterial pressure is 43 mmHg. BP: / HR: Rhythm: MEASUREMENTS (Male / Female) Normal Values Technical Quality: 2D ECHO LV Diastolic Diameter PLAX 4.0 cm 4.2 - 5.9 / 3.9 - 5.3 cm LV Systolic Diameter PLAX 3.1 cm IVS Diastolic Thickness 1.1 cm 0.6 - 1.0 / 0.6 - 0.9 cm LVPW Diastolic Thickness 0.6 cm 0.6 - 1.0 / 0.6 - 0.9 cm LV Relative Wall Thickness 0.4 RV Internal Dim ED PLAX 2.3 cm LA Systolic Diameter LX 3.4 cm 3.0 - 4.0 / 2.7 - 3.8 cm M-MODE Aortic Root Diameter MM 2.5 cm AV Cusp Separation MM 1.7 cm DOPPLER MR Peak Velocity 456.0 cm/s MR Peak Gradient 83.2 mmHg TR Peak Velocity 308.0 cm/s TR Peak Gradient 37.9 mmHg Right Atrial Pressure 5.0 mmHg Pulmonary Artery Systolic Pressu 42.9 mmHg Right Ventricular Systolic Press 42.9 mmHg FINDINGS LEFT VENTRICLE Normal left ventricular size. Wall thickness is normal. The left ventricular systolic function is normal with an estimated ejection fraction in the range of 55-60%. RIGHT VENTRICLE Normal right ventricular size and systolic function. LEFT ATRIUM The left atrial size is normal. RIGHT ATRIUM The right atrial size is mildly dilated. ATRIAL SEPTUM Normal atrial septal thickness without atrial level shunting by limited color doppler interrogation. AORTA The aortic root and proximal ascending aorta are normal in size on limited imaging. MITRAL VALVE Severe mitral valve regurgitation. AORTIC VALVE Trileaflet aortic valve. No aortic valve stenosis or regurgitation. TRICUSPID VALVE There is severe tricuspid regurgitation. The estimated pulmonary arterial pressure is 43 mmHg. PULMONARY VALVE No pulmonary valve regurgitation or stenosis. VESSELS The inferior vena cava is normal in size. PERICARDIUM No pericardial effusion. Jorge Carballo MD, FACC, [facility] [place] (Electronically Signed) Final Date:24 July 2017 18:35
--- NOTE | 2017-07-24 18:43 | HHI.DS ---
Discharge Summary Admission Date Jul 22, 2017 at 22:46 Discharge Date: Jul 24, 2017 Admitting Diagnosis New onset atrial fibrillation (1) Atrial fibrillation ICD Code: I48.91 - Unspecified atrial fibrillation Status: Acute Procedures None Brief History - From Admission 77-year-old female with a past medical history significant for hyperlipidemia presents to the emergency department from her physician's office for the evaluation of atrial fibrillation with rapid ventricular response. The patient was being seen by her primary care physician earlier yesterday for bilateral lower extremity edema 1-2 weeks when she was found to be in atrial fibrillation with RVR. She was given digoxin, aspirin and diltiazem in the office and was referred to the emergency department for further evaluation. Patient does report intermittent heart palpitations over the past 2 weeks. She denies any chest pain or shortness of breath. No loss of consciousness or dizziness. On arrival to the emergency department she is rate controlled however remains in atrial fibrillation. She has no cardiac history. She denies any abdominal pain. No nausea/vomiting/diarrhea. No weakness. CBC/BMP: 07/24/17 0850 07/24/17 0850 Significant Findings Laboratory Tests Test 07/22/17 17:53 07/22/17 20:52 07/24/17 08:50 Red Blood Count 5.46 MIL/MM3 (4.00-5.30) 5.57 MIL/MM3 (4.00-5.30) Hemoglobin 15.4 GM/DL (11.6-15.3) 15.4 GM/DL (11.6-15.3) Hematocrit 46.3 % (35.0-46.0) 47.1 % (35.0-46.0) Neutrophils (%) (Auto) 70.7 % (16.0-70.0) 73.1 % (16.0-70.0) Monocytes (%) (Auto) 8.6 % (0.0-8.0) 10.1 % (0.0-8.0) Sodium Level 134 MEQ/L (136-145) Estimat Glomerular Filtration Rate 77 ML/MIN (>89) Troponin I LESS THAN 0.02 NG/ML B-Type Natriuretic Peptide 392 PG/ML (0-100) Lymphocytes # (Auto) 0.9 TH/MM3 (1.0-4.8) HDL Cholesterol 92.3 MG/DL (40.0-60.0) Imaging Last Impressions Myocardial Perfusion Scan Nuc Med 07/23/17 0000 Signed Impressions: Service Date/Time: Sunday, July 23, 2017 12:12 - CONCLUSION: No evidence of infarct, ischemia or focal wall motion abnormality. RISK CATEGORY: Low risk (less than 1%% annual mortality rate). Altaf Farah MD Lower Extremity Ultrasound 07/22/172039 Signed Impressions: Service Date/Time: Saturday, July 22, 2017 21:53 - CONCLUSION: Normal examination. Paulo Plata MD Chest X-Ray 07/22/17 1743 Signed Impressions: Service Date/Time: Saturday, July 22, 2017 18:05 - CONCLUSION: 1. No acute findings. Paulo Plata MD PE at Discharge GENERAL: Well-nourished, well-developed pleasant elderly female patient in [facility]. SKIN: Warm and dry. Ecchymosis bilateral lower extremity left greater than the right. HEENT: Normocephalic. Atraumatic.Pupils equal and round. Mucous membranes pink and moist. CARDIOVASCULAR: Irregularly irregular, HR 90s. No murmur appreciated. RESPIRATORY: No accessory muscle use. Clear to auscultation. Breath sounds equal bilaterally. GASTROINTESTINAL: Abdomen soft, non-tender, nondistended. Normoactive bowel sounds x4. MUSCULOSKELETAL: No obvious deformities. Extremities without clubbing, cyanosis. Lateral lower extremity trace edema left greater than right. NEUROLOGICAL: Awake and alert. No obvious cranial nerve deficits. Motor grossly within normal limits. Normal speech. PSYCHIATRIC: Appropriate mood and affect; insight and judgment normal. Pt update on day of discharge Follow-up visit new onset atrial fibrillation. Patient seen and examined today. Family at the bedside. Discussed extensively with patient regarding atrial fibrillation and follow-up visit with her PCP and Dr. Paula the database programmer analyst. Discussed home medications to use, precautions, side effects of the medications. Patient states she feels better. She is able to ambulate the hallway without increasing her heart rate. She was given Cardizem today 90 mg. Able to ambulate with heart rate at the 90s as per RN. Denies pain and discomfort. Denies SOB/ dyspnea. Denies chest pain, palpitations, headaches, dizziness. Denies fevers, chills, n/v/d. Denies dysuria. Hospital Course 77-year-old female with history of hyperlipidemia presented to the ED from her PCPs office for evaluation of A. fib with RVR, reportedly heart rate 145 at the office and she was given digoxin, aspirin, cardizem, then sent to the ER. Patient found to have new onset atrial fibrillation with RVR with a heart rate of the 120s on arrival. Patient was given digoxin, Cardizem, aspirin prior to arrival to the hospital. She was placed on telemetry. Nuclear test was unremarkable. She was followed by cardiology, Dr. Paula. She was started on Cardizem 30 mg every 6 hours or in her heart rate continues to be in the low 100. She was increased to Cardizem 90 mg every 6 hours and able to ambulate in the hallway without increasing her heart rate. She was started on Xarelto 20 mg daily. Found to have with hypomagnesemia and was given mag sulfate with a repeat of 1.8. Patient was found to have generalized weakness possibly with ongoing rapid A. fib. Physical therapy was provided to the patient. We will discharge home with home health care including physical therapy and nursing. Patient has met maximal benefits of hospitalization. Clinically stable for discharge. Discussed follow-up with PCP and cardiology. Pt Condition on Discharge: Stable Discharge Disposition: Disch w/ Home Health Serv Discharge Time: > 30 minutes Discharge Instructions Additional Diet Instructions: Limit caffeine and alcohol use Activities you can perform: Regular-No Restrictions Activities to Avoid: Driving for 24 hrs Follow up Referrals: Cardiology, Interventional - 1 Week with Vee Paula MD PCP Follow-up - 2-3 Days New Medications: Diltiazem (Cardizem) 60 Mg Tab 90 MG PO Q6HR for Rate Control, AFIB, #120 TAB Rivaroxaban (Xarelto) 20 Mg Tab 20 MG PO WITH DINNER for Blood Clot Prevention, #30 TAB Caty Clemente Jul 24, 2017 18:43
--- NOTE | 2017-07-24 18:47 | HHI.DCPOC ---
Discharge Care Plan Diagnosis: (1) Atrial fibrillation Your Health Problems Are: Bleeding Tendency Shortness of Breath Goals to Promote Your Health * To prevent worsening of your condition and complications * To maintain your health at the optimal level Directions to Meet Your Goals Take your medications as prescribed Follow your dietary instruction Follow activity as directed Keep your appointments as scheduled Take your immunizations and boosters as scheduled If your symptoms worsen call your PCP, if no PCP go to Urgent Care Center or Emergency Room Smoking is Dangerous to Your Health. Avoid second hand smoke Call the 24-hour hour crisis hotline for domestic abuse at Caty ClementeP Jul 24, 2017 6:47 pm
--- NOTE | 2017-07-24 18:49 | HHI.FF ---
Face to Face Verification Diagnosis: (1) Atrial fibrillation Physical Therapy Order: Evaluate and Treat Home Health Nursing Order: Medical education Signs/symptoms of disease process Medication education-adverse effect Nursing assessment with vital signs I have seen patient Char Messina on 07/24/17. My clinical findings support the need for the requested home health care services because: Deconditioned w/ increased weakness Med compliance is questionable High risk of falls I certify that my clinical findings support that this patient is homebound because: Unsteady gait/balance Caty Clemente Jul 24, 2017 18:49
[2017-07-24] MEDS ORDERED: XARE20TA PO (18:50)
[2017-07-24] MEDS ORDERED: DILT60TA33 PO (18:50)
== END 2017-07-24 19:27 | disposition home or self-care (01) ==
LOC: NEPC 17:34 → NEDA 22:46 → NEDH 07-23 02:57 → NEPHCDU 07-23 15:02
PROVIDERS: ADMIT Hospitalist; ATTEND Hospitalist
DX: I48.91 Unspecified atrial fibrillation (principal); R60.0 Localized edema; R00.2 Palpitations; E78.5 Hyperlipidemia, unspecified; R94.31 Abnormal electrocardiogram [ECG] [EKG]; R53.1 Weakness; E83.42 Hypomagnesemia; I10 Essential (primary) hypertension; J44.9 Chronic obstructive pulmonary disease, unspecified; F17.200 Nicotine dependence, unspecified, uncomplicated; Z79.01 Long term (current) use of anticoagulants
CPT/HCPCS: 71046; 78452; 80048; 80061; 82550; 83735; 83880; 84443; 84484; 85025; 85610; 85730; 93005; 93017; 93306; 93970; 96365; 96366; 96372; 97162; 99285; A9502; G0378; G8987; G8988; J1650; J2785; J3475